=== PATIENT | female | born 1970 | race Caucasian/White ===

== ENCOUNTER 2018-02-04 11:42 | Emergency (ER) | payer SELFPAY ==
[2018-02-04] MEDS ORDERED: ASPIRIN 81 MG TABLET, CHEWABLE PO ONE (12:32)
--- NOTE | 2018-02-04 12:33 | ER Document Report ---
ED Medical Screen (RME) - General Chief Complaint: Chest Pain > 30 Stated Complaint: BLOOD PRESSURE PROBLEM Time Seen by Provider: 02/04/18 12:28 Notes: RAPID MEDICAL EVALUATION DISCLOSURE I have seen this patient as part of a Rapid Medical Evaluation and, if applicable, placed any initially appropriate orders. The patient will be seen and fully evaluated, including a full history and physical exam, by a provider ( in Main ED or Fast Track) when a room becomes available. 47-year-old female PMH hypertension here with complaints of right-sided chest discomfort radiating up to the right neck with associated shortness of breath lightheadedness nausea ongoing since this morning. Symptoms are not worse with exertion but somewhat worse with breathing. She denies any prior history of OR PE DVT. EXAM Minimally diffuse coarse breath sounds RRR TRAVEL OUTSIDE OF THE [place] IN LAST 30 DAYS: No - Related Data Allergies/Adverse Reactions: Penicillins Allergy (Verified 02/04/18 11:43) Sulfa (Sulfonamide Antibiotics) Allergy (Verified 02/04/18 11:43) Physical Exam - Vital signs Vitals: Temp Pulse Resp BP Pulse Ox 98.0 F 71 16 138/73 H 98 02/04/18 11:56 02/04/18 11:56 02/04/18 11:56 02/04/18 11:56 02/04/18 11:56 Course - Vital Signs Vital signs: Temp Pulse Resp BP Pulse Ox 98.0 F 71 16 138/73 H 98 02/04/18 11:56 02/04/18 11:56 02/04/18 11:56 02/04/18 12:32 02/04/18 11:56
--- NOTE | 2018-02-04 12:45 | RADIOLOGY REPORT (SQ) ---
EXAM DESCRIPTION: CHEST 2 VIEWS COMPLETED DATE/TIME: 02/04/2018 12:17 pm REASON FOR STUDY: chest pressure COMPARISON: None. EXAM PARAMETERS: NUMBER OF VIEWS: two views TECHNIQUE: Digital Frontal and Lateral radiographic views of the chest acquired. RADIATION DOSE: NA LIMITATIONS: none FINDINGS: LUNGS AND PLEURA: No opacities, masses or pneumothorax. No pleural effusion. MEDIASTINUM AND HILAR STRUCTURES: No masses or contour abnormalities. HEART AND VASCULAR STRUCTURES: Heart normal size. No evidence for failure. BONES: No acute findings. HARDWARE: None in the chest. OTHER: No other significant finding. IMPRESSION: NO ACUTE RADIOGRAPHIC FINDING IN THE CHEST. TECHNICAL DOCUMENTATION: JOB ID: [id number] [employer]- All Rights Reserved Reading location - IP/workstation name: [email or web address]
[2018-02-04 12:55] LABS: ABSOLUTE EOSINOPHILS # (AUTO) 0.5 10^3/uL (0.0-0.6); ABSOLUTE MONOCYTES (AUTO) 0.7 10^3/uL (0.1-1.4); ABSOLUTE NEUT (AUTO) 6.5 10^3/uL (1.7-8.2); BASOPHILS % (AUTO) 0.2 % (0-2); EOSINOPHILS % (AUTO) 5.1 % (0-6); HEMATOCRIT 44.4 % (36.0-47.0); LYMPHOCYTES % (AUTO) 20.4 % (13-45); MEAN CORPUSCULAR HEMOGLOBIN 29.3 pg (27.0-33.4); MEAN CORPUSCULAR HGB CONC 33.7 g/dL (32.0-36.0); MEAN CORPUSCULAR VOLUME 87 fl (80-97); PLATELET COUNT 311 10^3/uL (150-450); RED BLOOD COUNT 5.11 10^6/uL (3.72-5.28); RED CELL DISTRIBUTION WIDTH 15.4 % (11.5-14.0); SEGMENTED NEUTROPHILS % (AUTO) 67.3 % (42-78); TOTAL CELLS COUNTED % (AUTO) 100 %; WHITE BLOOD COUNT 9.7 10^3/uL (4.0-10.5)
--- NOTE | 2018-02-04 13:05 | ER Document Report ---
ED General - General Chief Complaint: Chest Pain > 30 Stated Complaint: BLOOD PRESSURE PROBLEM Time Seen by Provider: 02/04/18 12:28 TRAVEL OUTSIDE OF THE [place] IN LAST 30 DAYS: No - HPI Notes: Patient is a 47-year-old female with a history of hypertension and report of a previous CVA who presents to the ED complaining of midsternal chest pain that will occasionally radiate to her right arm and up the right lateral side of her neck that began 10 hours ago. Patient states that she has also had a cough over the last day that is semi-productive. Patient states that she does have occasional nausea without vomiting. She is otherwise eating and drinking without difficulties. She is urinating normally and having normal bowel movements. Patient states that she does not take any other medicine aside from lisinopril and is not on any blood thinners. She denies any other significant cardiopulmonary medical history. Patient states that symptoms are not worsened with ambulation. Denies any headache, fever, URI, sore throat, palpitations, syncope, wheeze, dyspnea, abdominal pain, vomiting/diarrhea, urinary retention, dysuria, hematuria, back pain, or rash. - Related Data Allergies/Adverse Reactions: Penicillins Allergy (Verified 02/04/18 11:43) Sulfa (Sulfonamide Antibiotics) Allergy (Verified 02/04/18 11:43) Past Medical History - Social History Smoking Status: Current Every Day Smoker Frequency of alcohol use: None Drug Abuse: None Family History: Reviewed & Not Pertinent Patient has suicidal ideation: No Patient has homicidal ideation: No Renal/ Medical History: Denies: Hx Peritoneal Dialysis Review of Systems - Review of Systems -: Yes All other systems reviewed and negative Physical Exam - Vital signs Vitals: Temp Pulse Resp BP Pulse Ox 98.0 F 71 16 138/73 H 98 02/04/18 11:56 02/04/18 11:56 02/04/18 11:56 02/04/18 11:56 02/04/18 11:56 - Notes Notes: PHYSICAL EXAMINATION: GENERAL: Well-appearing, well-nourished and in no acute distress. HEAD: Atraumatic, normocephalic. EYES: Pupils equal round and reactive to light, extraocular movements intact, sclera anicteric, conjunctiva are normal. ENT: Nares patent and without discharge. oropharynx clear without exudates. No tonsilar hypertrophy or erythema. Moist mucous membranes. NECK: Normal range of motion, supple without lymphadenopathy Chest: + reproducible tenderness to the inferior sternum, correlates with pain described. LUNGS: Breath sounds clear to auscultation bilaterally and equal. No wheezes rales or rhonchi. HEART: Regular rate and rhythm without murmurs, rubs, gallops. ABDOMEN: Soft, nontender, nondistended abdomen. No guarding, no rebound. No masses appreciated. Normal bowel sounds present. No CVA tenderness bilaterally. Musculoskeletal: FROM to passive/active. Strength 5+/5. Kylah neg b/l. Extremities: No cyanosis, clubbing, or edema b/l. Peripheral pulses 2+. Capillary refill less than 3 seconds. NEUROLOGICAL: Cranial nerves grossly intact. Normal speech, normal gait. PSYCH: Normal mood, normal affect. SKIN: Warm, Dry, normal turgor, no rashes or lesions noted. Course - Re-evaluation Re-evalutation: 02/04/18 17:46 Patient is an afebrile, well-hydrated, 47-year-old female who presents to the ED with chest pain unspecified, suspect chest wall pain. Vitals are acceptable. Patient does not have any significant tachycardia, tachypnea, or hypoxia. PE is otherwise unremarkable aside from the reproducible chest wall tenderness on palpation. CBC, CMP, cardiac enzymes 2/EKG, chest x-ray were unremarkable for any acute pathology. Patient has a heart score of 2 and is PERC negative. Wells 0. Patient is nontoxic-appearing and is tolerating p.o. without difficulties. Low suspicion for any ACS, PE, pneumothorax, pericarditis , dissection, respiratory compromise, severe dehydration, sepsis, meningitis, or other systemic emergent condition at this time. Patient is aware that her condition can change from initial presentation and she needs to monitor symptoms closely and seek medical attention for any acute changes. Recommend conservative measures for symptoms. Recheck with your PCM in 3-5 days. Return to the ED with any worsening/concerning symptoms otherwise as reviewed in discharge. Patient is in agreement. - Vital Signs Vital signs: Temp Pulse Resp BP Pulse Ox 97.4 F 71 15 139/82 H 98 02/04/18 14:00 02/04/18 11:56 02/04/18 14:01 02/04/18 14:01 02/04/18 14:01 - Laboratory Result Diagrams: 02/04/18 12:40 02/04/18 12:40 Laboratory results interpreted by me: 02/04/18 12:40 RDW 15.4 H Discharge - Discharge Clinical Impression: Chest wall pain Chest pain Qualifiers: Chest pain type: unspecified Qualified Code(s): R07.9 - Chest pain, unspecified Condition: Stable Disposition: HOME, SELF-CARE Instructions: Chest Wall Pain ([facility]), Chest Pain of Unclear Cause ([facility]) Additional Instructions: My cardiac Maintain adequate fluid and food intake Take home medications as directed Low sodium/fat diet Exercise regularly Weight control Monitor blood pressure daily and keep a log Monitor symptoms for any acute changes Recheck with your PCM in 3-5 days Consider a follow-up with cardiology Return to the ED with any worsening symptoms and/or development of fever, headache, chest pain, palpitations, syncope, shortness of breath, trouble breathing, abdominal pain, n/v/d, blood in stool/urine, loss of control of bowel /bladder, urinary retention, muscle weakness/paralysis, numbness/tingling, or other worsening symptoms that are concerning to you. Forms: Elevated Blood Pressure, Smoking Cessation Education Referrals: TARA SANTORO MD [ACTIVE STAFF] - Follow up as needed
[2018-02-04 13:14] LABS: ANION GAP 8 (5-19); BLOOD UREA NITROGEN 11 mg/dL (7-20); CALCIUM 9.4 mg/dL (8.4-10.2); CARBON DIOXIDE 27 mmol/L (22-30); CHLORIDE 107 mmol/L (98-107); GLUCOSE 101 mg/dL (75-110); POTASSIUM 4.9 mmol/L (3.6-5.0); SODIUM 142.4 mmol/L (137-145)
[2018-02-04 17:57] VITALS: BP 119/78
--- NOTE | 2018-02-05 00:18 | EKG REPORT ---
SEVERITY:- NORMAL ECG - SINUS RHYTHM : Confirmed by: Julissa Camejo MD 05-Feb-2018 00:16:59
== END 2018-02-04 17:58 | disposition home or self-care (01) ==
LOC: ER 11:42
DX: R07.9 Chest pain, unspecified (principal); I10 Essential (primary) hypertension; F17.200 Nicotine dependence, unspecified, uncomplicated; Z86.73 Personal history of transient ischemic attack (TIA), and cerebral infarction without residual deficits; Z88.0 Allergy status to penicillin; Z88.2 Allergy status to sulfonamides
CPT/HCPCS: 36415; 71046; 80048; 84484; 85025; 93005; 93010; 99285

== ENCOUNTER 2019-06-16 20:55 | Emergency (ER) | payer BC ==
[2019-06-16] MEDS ORDERED: ASPIRIN 81 MG TABLET, CHEWABLE PO ONE (22:06)
--- NOTE | 2019-06-16 22:06 | ER Document Report ---
ED Medical Screen (RME) - General Chief Complaint: Chest Pain Stated Complaint: CHEST PAIN/DIZZINESS Time Seen by Provider: 06/16/19 22:02 Mode of Arrival: Wheelchair Information source: Patient Notes: 48-year-old female presented to ED for complaint of chest pain and dizziness. She states that started between 330 4:00 while she was at work. 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 She states she has a history of high blood pressure cholesterol and COPD. She states she smokes a pack and a half of cigarettes a day does not drink or do any drugs. She is alert oriented respirations regular nonlabored at this time. I have greeted and performed a rapid initial assessment of this patient. A comprehensive ED assessment and evaluation of the patient, analysis of test results and completion of medical decision making process will be conducted by an additional ED providers. TRAVEL OUTSIDE OF THE [place] IN LAST 30 DAYS: No - Related Data Allergies/Adverse Reactions: Penicillins Allergy (Verified 06/16/19 21:57) Sulfa (Sulfonamide Antibiotics) Allergy (Verified 06/16/19 21:57) Home Medications: Phenazopyrid. Patient quit taking her lisinopril Past Medical History - Social History Frequency of alcohol use: None Drug Abuse: None Pulmonary Medical History: Reports: Hx Asthma, Hx COPD Renal/ Medical History: Denies: Hx Peritoneal Dialysis Past Surgical History: Reports: Hx Gynecologic Surgery, Hx Orthopedic Surgery Physical Exam - Vital signs Vitals: Temp Pulse Resp BP Pulse Ox 99.0 F 87 18 181/101 H 97 06/16/19 21:15 06/16/19 21:15 06/16/19 21:15 06/16/19 21:15 06/16/19 21:15 Course - Vital Signs Vital signs: Temp Pulse Resp BP Pulse Ox 99.0 F 87 18 181/101 H 97 06/16/19 21:15 06/16/19 21:15 06/16/19 21:15 06/16/19 21:15 06/16/19 21:15
[2019-06-16 22:42] LABS: ABSOLUTE BASOPHILS # (AUTO) 0.1 10^3/uL (0.0-0.2); ABSOLUTE EOSINOPHILS # (AUTO) 0.2 10^3/uL (0.0-0.6); ABSOLUTE LYMPHOCYTES (AUTO) 2.6 10^3/uL (0.5-4.7); ABSOLUTE MONOCYTES (AUTO) 0.7 10^3/uL (0.1-1.4); HEMATOCRIT 45.4 % (36.0-47.0); HEMOGLOBIN 15.1 g/dL (12.0-15.5); LYMPHOCYTES % (AUTO) 22.5 % (13-45); MEAN CORPUSCULAR HEMOGLOBIN 28.9 pg (27.0-33.4); MEAN CORPUSCULAR HGB CONC 33.2 g/dL (32.0-36.0); MEAN CORPUSCULAR VOLUME 87 fl (80-97); PLATELET COUNT 297 10^3/uL (150-450); RED BLOOD COUNT 5.22 10^6/uL (3.72-5.28); RED CELL DISTRIBUTION WIDTH 15.2 % (11.5-14.0); SEGMENTED NEUTROPHILS % (AUTO) 68.5 % (42-78); TOTAL CELLS COUNTED % (AUTO) 100 %; WHITE BLOOD COUNT 11.6 10^3/uL (4.0-10.5)
[2019-06-16 22:56] LABS: APPEARANCE,URINE CLEAR; BILIRUBIN,URINE NEGATIVE (NEGATIVE); GLUCOSE, URINE NEGATIVE (NEGATIVE); KETONES,URINE NEGATIVE (NEGATIVE); PROTEIN,URINE NEGATIVE (NEGATIVE); URINE SPECIFIC GRAVITY 1.006; UROBILINOGEN,URINE NEGATIVE mg/dL (<2.0)
[2019-06-16 22:59] LABS: ALBUMIN 4.9 g/dL (3.5-5.0); ALKALINE PHOSPHATASE 57 U/L (38-126); ANION GAP 8 (5-19); ASPARTATE AMINO TRANSFERASE 20 U/L (14-36); BILIRUBIN,DIRECT 0.1 mg/dL (0.0-0.4); BILIRUBIN,TOTAL 0.5 mg/dL (0.2-1.3); BLOOD UREA NITROGEN 11 mg/dL (7-20); CALCIUM 10.4 mg/dL (8.4-10.2); CARBON DIOXIDE 29 mmol/L (22-30); CHLORIDE 103 mmol/L (98-107); GLUCOSE 91 mg/dL (75-110); POTASSIUM 4.6 mmol/L (3.6-5.0); TOTAL PROTEIN 7.8 g/dL (6.3-8.2)
--- NOTE | 2019-06-16 23:03 | RADIOLOGY REPORT (SQ) ---
EXAM DESCRIPTION: XR CHEST 2 VIEWS COMPLETED DATE/TME: 06/16/2019 22:07 CLINICAL HISTORY: 48 years, Female, chest pain copd COMPARISON: Prior study from 02/04/2018 NUMBER OF VIEWS: Two TECHNIQUE: Frontal and lateral radiographs of the chest were acquired LIMITATIONS: None. FINDINGS: Cardiac and mediastinal contours are stable. Lungs are clear. No pleural effusion or pneumothorax. Nodular opacities project about both lower lung zones, indicating nipple shadows. IMPRESSION: No acute disease. copyright 2010 [employer]- All Rights Reserved
[2019-06-16 23:08] LABS: COLOR,URINE DARK YELLOW
--- NOTE | 2019-06-17 00:16 | ER Document Report ---
ED Cardiac - General Chief Complaint: Chest Pain Stated Complaint: CHEST PAIN/DIZZINESS Time Seen by Provider: 06/16/19 22:02 Mode of Arrival: Wheelchair Notes: 48-year-old female with past significant history of hypertension presents with right sided chest pain with radiation down right arm, dyspnea, and dizziness th at started while at work at around [id number]. Pt states she has similar episodes in past several weeks but states it has been more constant today. Pt is also a smoker and has COPD. Pt has history of stress test years ago which was negative. 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 Pt's mother has history of 3-4 stents. Denies any dysuria or frequency/urgency. Pt has also been referred to urology due to hematuria. TRAVEL OUTSIDE OF THE [place] IN LAST 30 DAYS: No - Related Data Allergies/Adverse Reactions: Penicillins Allergy (Verified 06/16/19 21:57) Sulfa (Sulfonamide Antibiotics) Allergy (Verified 06/16/19 21:57) Home Medications: Phenazopyrid. Patient quit taking her lisinopril Past Medical History - General Information source: Patient - Social History Smoking Status: Current Every Day Smoker Frequency of alcohol use: None Drug Abuse: None Family History: CAD, CVA Patient has suicidal ideation: No Patient has homicidal ideation: No - Past Medical History Cardiac Medical History: Reports: Hx Hypertension Pulmonary Medical History: Reports: Hx Asthma, Hx COPD Renal/ Medical History: Denies: Hx Peritoneal Dialysis Past Surgical History: Reports: Hx Gynecologic Surgery, Hx Orthopedic Surgery Review of Systems - Review of Systems Notes: Constitutional: Negative for fever. HENT: Negative for sore throat. Eyes: Negative for visual changes. Cardiovascular: Positive for chest pain. Respiratory: Positive for shortness of breath. Gastrointestinal: Negative for abdominal pain, vomiting or diarrhea. Genitourinary: Negative for dysuria. Musculoskeletal: Negative for back pain. Skin: Negative for rash. Neurological: Positive for dizziness. Negative for headaches, weakness or numbness. 10 point ROS negative except as marked above and in HPI. Physical Exam - Vital signs Vitals: Temp Pulse Resp BP Pulse Ox 99.0 F 87 18 181/101 H 97 06/16/19 21:15 06/16/19 21:15 06/16/19 21:15 06/16/19 21:15 06/16/19 21:15 - Notes Notes: GENERAL: Well-appearing, well-nourished and in no acute distress. HEAD: Atraumatic, normocephalic. EYES: Extraocular movements intact, sclera anicteric, conjunctiva are normal. NECK: Normal range of motion, supple without lymphadenopathy or JVD. LUNGS: Breath sounds clear to auscultation bilaterally and equal. No wheezes rales or rhonchi. HEART: Regular rate and rhythm without murmurs, rubs or gallops. ABDOMEN: Soft, nontender, normoactive bowel sounds. No guarding, no rebound. No masses appreciated. EXTREMITIES: Normal range of motion, no pitting or edema. No clubbing or cyanosis. NEUROLOGICAL: Cranial nerves II through XII grossly intact. Normal speech, normal gait. PSYCH: Normal mood, normal affect. SKIN: Warm, Dry, normal turgor, no rashes or lesions noted. Course - Re-evaluation Re-evalutation: 06/17/19 Presentation of chest pain in an otherwise well appearing patient. Low clinical suspicion for ACS given clinical history, exam, EKG without ST elevations or depressions, and negative initial troponin. HEART score less than or equal to 3. PE also seems unlikely given clinical history, absence of tachycardia or dyspnea. Patient is PERC criteria negative. CXR without evidence of pneumothorax or pneumonia. No widened mediastinum. Aortic dissection also seems unlikely given history, symmetric pulses, CXR, and vitals. HEART Score: History ECG Age Risk Factors Troponin Total:3 Chest pain in a patient without evidence of cardiac or other serious etiology on workup today. I discussed with patient that, based on their age, risk factors and emergency department testing today, the likelihood that their symptoms are related to a heart attack is very low (estimated risk of heart attack or over the next 30 days of less than 1%). The patient demonstrates decision making capacity and has verbalized an understanding of these risks to me. Based on this, the patient has chosen to follow-up as an outpatient. Usual chest pain return precautions reviewed. The patient states understanding and agreement with this plan. - Vital Signs Vital signs: Temp Pulse Resp BP Pulse Ox 97.7 F 87 22 H 151/81 H 94 06/17/19 01:47 06/16/19 21:15 06/17/19 01:01 06/17/19 01:01 06/17/19 01:01 - Laboratory Result Diagrams: 06/16/19 22:22 06/16/19 22:22 Laboratory results interpreted by me: 06/16/19 06/16/19 06/16/19 22:22 22:22 22:22 WBC 11.6 H RDW 15.2 H Calcium 10.4 H Urine Blood SMALL H Urine Nitrite (Reflex) POSITIVE H Discharge - Discharge Clinical Impression: Chest pain Qualifiers: Chest pain type: unspecified Qualified Code(s): R07.9 - Chest pain, unspecified Condition: Stable Disposition: HOME, SELF-CARE Instructions: Chest Pain of Unclear Cause ([facility]) Additional Instructions: You were seen today for chest pain. The exact cause of your pain is unclear. However, based on your cardiac enzyme testing, chest x-ray, and EKG it does not appear that it is from an immediately life-threatening cause at this time. Please keep your commercial front load operator appointment as scheduled. Please return to emergency department immediately if you have worsening of your chest pain, shortness of breath, vomiting, become unable to exert yourself due to pain or difficulty breathing, you pass out, or have any pain that radiates into your arms, jaw, or back. Please also return if you have any additional symptoms that are concerning to you. Forms: Return to Work
[2019-06-17 02:29] VITALS: BP 147/76
--- NOTE | 2019-06-17 21:34 | EKG REPORT ---
SEVERITY:- ABNORMAL ECG - SINUS RHYTHM PROBABLE LEFT ATRIAL ABNORMALITY PROBABLE LEFT VENTRICULAR HYPERTROPHY : Confirmed by: Carlene Wallis 17-Jun-2019 21:33:58
== END 2019-06-17 02:30 | disposition home or self-care (01) ==
LOC: ER 20:55
DX: R07.9 Chest pain, unspecified (principal); R42 Dizziness and giddiness; M79.601 Pain in right arm; R06.00 Dyspnea, unspecified; F17.200 Nicotine dependence, unspecified, uncomplicated; I10 Essential (primary) hypertension; J44.9 Chronic obstructive pulmonary disease, unspecified; Z91.14 Patient's other noncompliance with medication regimen; Z79.899 Other long term (current) drug therapy
CPT/HCPCS: 36415; 71046; 80053; 81001; 83690; 84484; 84703; 85025; 87086; 93005; 93010; 99285

== ENCOUNTER 2019-07-10 20:10 | Emergency (ER) | payer BC ==
[2019-07-10] MEDS ORDERED: ONDANSETRON HCL INJ/PF 4 MG/2 ML SDV IV ONE (20:20)
[2019-07-10] MEDS ORDERED: NORMAL SALINE 1000 ML 1,000 ML IV ONE (20:20)
[2019-07-10] MEDS ORDERED: FAMOTIDINE INJ/PF 20 MG/2 ML SDV IV ONE (20:21)
--- NOTE | 2019-07-10 20:24 | ER Document Report ---
ED Medical Screen (RME) - General Stated Complaint: UPPER GASTRIC PAIN Time Seen by Provider: 07/10/19 20:16 Notes: Patient is a 48-year-old female who presents the emergency department with a chief complaint of abdominal pain. Patient reports she was diagnosed with a uterine fibroid last week. Patient reports she started to have some lower abdominal discomfort 2 days ago but that it started to radiate up into her upper abdomen. Patient reports epigastric pain that is worse when attempting to eat. Patient reports she feels extreme nausea and every time she attempts to vomit she feels like it stuck in her throat and does not come up. Patient reports dry heaving. Patient denies fever. Patient reports generalized abdominal pain at this time. Patient denies urinary symptoms. TRAVEL OUTSIDE OF THE [place] IN LAST 30 DAYS: No - Related Data Allergies/Adverse Reactions: Penicillins Allergy (Verified 06/16/19 21:57) Sulfa (Sulfonamide Antibiotics) Allergy (Verified 06/16/19 21:57) Past Medical History - Past Medical History Cardiac Medical History: Reports: Hx Hypertension Pulmonary Medical History: Reports: Hx Asthma, Hx COPD Renal/ Medical History: Denies: Hx Peritoneal Dialysis Past Surgical History: Reports: Hx Gynecologic Surgery, Hx Orthopedic Surgery Physical Exam - Abdominal Inspection: Normal Distension: No distension Tenderness: Tender - Generalized abdominal tenderness throughout. Course - Re-evaluation Re-evalutation: 07/10/19 20:24 Patient currently dry heaving in triage. Patient does have generalized abdominal tenderness on examination. Patient will require a thorough abdominal exam. Will start IV fluids, lab work and antinausea medication here in triage. I have greeted and performed a rapid initial assessment of this patient. A comprehensive ED assessment and evaluation of the patient, analysis of test results and completion of the medical decision making process will be conducted by additional ED providers.
[2019-07-10 20:59] LABS: ABSOLUTE BASOPHILS # (AUTO) 0.1 10^3/uL (0.0-0.2); ABSOLUTE EOSINOPHILS # (AUTO) 0.4 10^3/uL (0.0-0.6); ABSOLUTE LYMPHOCYTES (AUTO) 2.5 10^3/uL (0.5-4.7); ABSOLUTE NEUT (AUTO) 8.1 10^3/uL (1.7-8.2); BASOPHILS % (AUTO) 0.6 % (0-2); EOSINOPHILS % (AUTO) 2.9 % (0-6); HEMATOCRIT 45.6 % (36.0-47.0); HEMOGLOBIN 15.5 g/dL (12.0-15.5); LYMPHOCYTES % (AUTO) 20.7 % (13-45); MEAN CORPUSCULAR HEMOGLOBIN 29.6 pg (27.0-33.4); MEAN CORPUSCULAR HGB CONC 34.1 g/dL (32.0-36.0); MEAN CORPUSCULAR VOLUME 87 fl (80-97); MONOCYTES % (AUTO) 8.4 % (3-13); PLATELET COUNT 333 10^3/uL (150-450); RED BLOOD COUNT 5.24 10^6/uL (3.72-5.28); RED CELL DISTRIBUTION WIDTH 15.4 % (11.5-14.0); SEGMENTED NEUTROPHILS % (AUTO) 67.4 % (42-78); TOTAL CELLS COUNTED % (AUTO) 100 %
[2019-07-10 21:10] LABS: ALKALINE PHOSPHATASE 67 U/L (38-126); ANION GAP 11 (5-19); ASPARTATE AMINO TRANSFERASE 21 U/L (14-36); BILIRUBIN,DIRECT 0.2 mg/dL (0.0-0.4); BILIRUBIN,TOTAL 0.7 mg/dL (0.2-1.3); BLOOD UREA NITROGEN 18 mg/dL (7-20); CALCIUM 10.5 mg/dL (8.4-10.2); CARBON DIOXIDE 27 mmol/L (22-30); CHLORIDE 100 mmol/L (98-107); GLUCOSE 103 mg/dL (75-110); POTASSIUM 4.6 mmol/L (3.6-5.0); TOTAL PROTEIN 8.1 g/dL (6.3-8.2)
[2019-07-10 21:14] LABS: APPEARANCE,URINE SLIGHTLY-CLOUDY; BILIRUBIN,URINE NEGATIVE (NEGATIVE); COLOR,URINE YELLOW; GLUCOSE, URINE NEGATIVE (NEGATIVE); KETONES,URINE NEGATIVE (NEGATIVE); LEUKOCYTE ESTERASE,URINE NEGATIVE (NEGATIVE); NITRITE,URINE NEGATIVE (NEGATIVE); PROTEIN,URINE NEGATIVE (NEGATIVE); URINE SPECIFIC GRAVITY 1.017; UROBILINOGEN,URINE NEGATIVE mg/dL (<2.0)
--- NOTE | 2019-07-10 23:07 | ER Document Report ---
ED General - General Chief Complaint: Abdominal Pain Stated Complaint: UPPER GASTRIC PAIN Time Seen by Provider: 07/10/19 20:16 Primary Care Provider: JOSE ALFREDO LIMA NP [Primary Care Provider] - Follow up as needed TRAVEL OUTSIDE OF THE [place] IN LAST 30 DAYS: No - Related Data Allergies/Adverse Reactions: Penicillins Allergy (Verified 06/16/19 21:57) Sulfa (Sulfonamide Antibiotics) Allergy (Verified 06/16/19 21:57) Past Medical History - Social History Smoking Status: Former Smoker Family History: CAD, CVA Patient has suicidal ideation: No Patient has homicidal ideation: No - Past Medical History Cardiac Medical History: Reports: Hx Hypertension Pulmonary Medical History: Reports: Hx Asthma, Hx COPD Renal/ Medical History: Denies: Hx Peritoneal Dialysis Past Surgical History: Reports: Hx Gynecologic Surgery, Hx Orthopedic Surgery Physical Exam - Vital signs Vitals: Temp Pulse Resp BP Pulse Ox 98.7 F 110 H 20 146/99 H 98 07/10/19 20:22 07/10/19 20:22 07/10/19 20:22 07/10/19 20:22 07/10/19 20:22 - Notes Notes: Patient presents emergency department complaining of pain across her upper abdomen around to her back and off the past week. Pain is been constant increasing decreasing in severity. Pain is totally different from the lower abdominal pain she has had for 2 months and was recently diagnosed with a fibroid uterus. She said nausea vomiting with is unable to tolerate any p.o.'s. No fevers chest pain or shortness of breath she says indicates she is felt wa rm. Has had no diarrhea or dysuria denies any previous history of peptic ulcer disease or gallbladder disease Past medical history sniffing for hypertension and fibroid uterus. Social history smokes does not drink. LMP just ended Review of systems pertinent positives and negatives in HPI otherwise all the systems were reviewed and acutely negative PHYSICIAN EXAM -vital signs are noted triage note and note from triage reviewed GENERAL: Well-appearing, well-nourished and in __no acute distress____ HEAD: Atraumatic, normocephalic. EYES: Pupils equal round and reactive to light, extraocular movements intact, sclera anicteric, conjunctiva are normal. ENT: nares patent, oropharynx clear without exudates. Slightly dry mucous membranes. NECK: supple without lymphadenopathy LUNGS: Breath sounds clear to auscultation bilaterally and equal. No wheezes rales or rhonchi. HEART: Rapid and regular ABDOMEN: Severe tenderness throughout however the pain appears to be out of pr oportion to her findings. Percussion tenderness is no rigidity. However she has no pain with abduction of the hips or percussion of the heels EXTREMITIES: No deformity, no edema. NEUROLOGICAL: Cranial nerves symmetrical smile and facial expressions. Motor strength is 5/5 in the upper and l lower extremities toes are downgoing no pain with straight leg raise PSYCH: Normal mood, normal affect. SKIN: Warm, Dry, normal turgor, no rashes or lesions noted. BACK-she has severe bilateral CVA tenderness again appears out of proportion to the findings that extends into the lower costal margin vertebral area but there is no pain with sitting Differential diagnosis dehydration viral syndrome pancreatitis peptic ulcer near pyelonephritis pneumonia Course - Re-evaluation Re-evalutation: 07/11/19 02:20 ED patient remained stable had serial exams abdominal pain is improved significantly. Given IV fluids and tolerating liquids well Medical decision making patient presents with abdominal pain of unclear etiology. She is not dehydrated work-up is unremarkable notes of a surgical abdomen looks well can be discharged home I discussed results of laboratory findings and diagnostic test with patient/family. The treatment plan was explained and I reviewed the discharge instructions with them. Questions were answered. The patient/family verbalizes understanding Patient 1 dictation was done using voice recognition software. There may be some grammatical errors which are unintentional - Vital Signs Vital signs: Temp Pulse Resp BP Pulse Ox 98.2 F 86 16 123/57 L 100 07/11/19 00:22 07/11/19 00:22 07/11/19 00:22 07/11/19 00:22 07/11/19 00:22 - Laboratory Result Diagrams: 07/10/19 20:28 07/10/19 20:28 Laboratory results interpreted by me: 07/10/19 07/10/19 07/10/19 20:28 20:28 21:00 WBC 12.0 H RDW 15.4 H Calcium 10.5 H Urine Blood MODERATE H Discharge - Discharge Clinical Impression: Vomiting Abdominal pain Qualifiers: Abdominal location: upper abdomen, unspecified Qualified Code(s): R10.10 - Upper abdominal pain, unspecified Disposition: HOME, SELF-CARE Instructions: Abdominal Pain ([facility]), Antinausea Medication ([facility]), Antispasmodics ([facility]) Additional Instructions: Please review the discharge instructions, they will tell you about your disease/injury and what you need to return to the ED for Return to the ED if you feel worse or can follow-up with your family doctor Follow-up with your family doctor in 2 to 3 days if not better STAY on clear liquids for the next 8 to 12 hours and then a bland diet for the next 2 to 3 days avoiding fatty greasy foods Your blood pressure was elevated today needs to be rechecked again in 1 to 2 weeks to determine if need to be on medication or have your medications a djusted. Untreated hypertension can cause heart attack stroke and kidney failure Prescriptions: Dicyclomine HCl [Bentyl 20 mg Tablet] 20 mg PO QID PRN #15 tablet PRN Reason: Ondansetron HCl [Zofran 4 mg Tablet] 1 tab PO Q4H PRN #10 tablet PRN Reason: Referrals: JOSE ALFREDO LIMA NP [Primary Care Provider] - Follow up as needed
--- NOTE | 2019-07-11 00:04 | RADIOLOGY REPORT (SQ) ---
EXAM DESCRIPTION: XR CHEST 2 VIEWS COMPLETED DATE/TME: 07/10/2019 23:08 CLINICAL HISTORY: 48 years Female, Chest pain COMPARISON:Jun 16 2019 NUMBER OF VIEWS/TECHNIQUE: 2, Frontal, Lateral FINDINGS: Increased emphysematous lung volume, clear parenchyma, normal cardiac silhouette, and intact bony thorax. IMPRESSION: No acute cardiopulmonary findings.
--- NOTE | 2019-07-11 00:23 | RADIOLOGY REPORT (SQ) ---
EXAM DESCRIPTION: CT abdomen and pelvis with contrast CLINICAL HISTORY: 48 years Female, Abdominal pain COMPARISON: None. TECHNIQUE: Axial images of the abdomen and pelvis were performed utilizing intravenous contrast, with sagittal and coronal reformatted images. This exam was performed according to our departmental dose-optimization program which includes use of Automated Exposure Control, adjustment of the mA and/or kV according to patient size and/or use of iterative reconstruction technique. FINDINGS: There is a small amount of fluid in the endometrial cavity. There are atherosclerotic changes involving the abdominal aorta, but there is no aneurysm. The appendix appears normal. No evidence of bowel obstruction. There is no significant radiographic abnormality of the liver, spleen, pancreas, adrenal glands or kidneys. There is a small calcified granuloma at the right lung base. IMPRESSION: Small amount of fluid in the endometrial cavity. Please correlate clinically. There are atherosclerotic changes involving the abdominal aorta, but there is no aneurysm.
[2019-07-11] MEDS ORDERED: ONDANSETRON ODT 4 MG TAB (6 TAB/ER DISP) PO PRN (02:30)
[2019-07-11 02:45] VITALS: BP 125/44
== END 2019-07-11 02:45 | disposition home or self-care (01) ==
LOC: ER 20:10
DX: R11.10 Vomiting, unspecified (principal); R10.10 Upper abdominal pain, unspecified; I10 Essential (primary) hypertension; J44.9 Chronic obstructive pulmonary disease, unspecified; F17.200 Nicotine dependence, unspecified, uncomplicated
CPT/HCPCS: 99284; 96361; 96374; 96375; 36415; 83690; 85025; 81025; 80053; 81001; 71046; 74177; J2405; J7030; S0028

== ENCOUNTER 2020-03-24 08:00 | Emergency (ER) | payer BC ==
[2020-03-24 08:52] VITALS: BP 152/79
[2020-03-24] MEDS ORDERED: MECLIZINE HCL 25 MG TABLET PO ONE (09:46)
[2020-03-24 10:31] LABS: ABSOLUTE BASOPHILS # (AUTO) 0.3 10^3/uL (0.0-0.2); ABSOLUTE EOSINOPHILS # (AUTO) 0.4 10^3/uL (0.0-0.6); ABSOLUTE LYMPHOCYTES (AUTO) 2.6 10^3/uL (0.5-4.7); ABSOLUTE MONOCYTES (AUTO) 0.7 10^3/uL (0.1-1.4); BASOPHILS % (AUTO) 2.3 % (0-2); EOSINOPHILS % (AUTO) 3.2 % (0-6); HEMOGLOBIN 16.1 g/dL (12.0-15.5); LYMPHOCYTES % (AUTO) 23.9 % (13-45); MEAN CORPUSCULAR HEMOGLOBIN 29.8 pg (27.0-33.4); MEAN CORPUSCULAR HGB CONC 33.5 g/dL (32.0-36.0); MEAN CORPUSCULAR VOLUME 89 fl (80-97); MONOCYTES % (AUTO) 6.5 % (3-13); PLATELET COUNT 331 10^3/uL (150-450); RED CELL DISTRIBUTION WIDTH 15.1 % (11.5-14.0); SEGMENTED NEUTROPHILS % (AUTO) 64.1 % (42-78); TOTAL CELLS COUNTED % (AUTO) 100 %
[2020-03-24 10:48] LABS: APPEARANCE,URINE CLEAR; BILIRUBIN,URINE NEGATIVE (NEGATIVE); COLOR,URINE YELLOW; GLUCOSE, URINE NEGATIVE (NEGATIVE); KETONES,URINE NEGATIVE (NEGATIVE); PROTEIN,URINE NEGATIVE (NEGATIVE); URINE SPECIFIC GRAVITY 1.016; UROBILINOGEN,URINE NEGATIVE mg/dL (<2.0)
[2020-03-24 10:49] LABS: ALBUMIN 4.8 g/dL (3.5-5.0); ALKALINE PHOSPHATASE 56 U/L (38-126); ANION GAP 5 (5-19); ASPARTATE AMINO TRANSFERASE 26 U/L (14-36); BILIRUBIN,TOTAL 0.6 mg/dL (0.2-1.3); BLOOD UREA NITROGEN 16 mg/dL (7-20); CALCIUM 9.6 mg/dL (8.4-10.2); CARBON DIOXIDE 27 mmol/L (22-30); CHLORIDE 104 mmol/L (98-107); GLUCOSE 95 mg/dL (75-110); POTASSIUM 5.2 mmol/L (3.6-5.0); TOTAL PROTEIN 8.4 g/dL (6.3-8.2)
--- NOTE | 2020-03-24 10:54 | ER Document Report ---
ED General - General Chief Complaint: Dizziness Stated Complaint: WEAKNESS,DIARRHEA Time Seen by Provider: 03/24/20 09:16 Primary Care Provider: JOSE ALFREDO LIMA NP [Primary Care Provider] - Follow up as needed Mode of Arrival: Ambulatory Information source: Patient Notes: 49-year-old female patient presenting to the emergency department complaints of dizziness, nausea after starting Lexapro 2 days ago. She states she is only had 2 doses. She states that her mental health provider started her on this. She was not taking any antidepressant previous to this. She denies any suicidal homicidal thoughts. She states that she believes her dizziness is from the med ication and she wanted to get checked out before stopping the medication. She denies any fever, chills, vomiting or diarrhea. She denies any known exposure 20 COVID-19 positive persons. TRAVEL OUTSIDE OF THE [place] IN LAST 30 DAYS: No - Related Data Allergies/Adverse Reactions: Penicillins Allergy (Verified 03/24/20 10:57) Sulfa (Sulfonamide Antibiotics) Allergy (Verified 03/24/20 10:57) Past Medical History - General Information source: Patient - Social History Smoking Status: Current Every Day Smoker Frequency of alcohol use: None Drug Abuse: None Family History: CAD, CVA Patient has homicidal ideation: No - Past Medical History Cardiac Medical History: Reports: Hx Hypertension Pulmonary Medical History: Reports: Hx Asthma, Hx COPD Renal/ Medical History: Denies: Hx Peritoneal Dialysis Past Surgical History: Reports: Hx Gynecologic Surgery, Hx Orthopedic Surgery Review of Systems - Review of Systems Constitutional: Other - Dizziness Gastrointestinal: Nausea -: Yes All other systems reviewed and negative Physical Exam - Vital signs Vitals: Temp Pulse Resp BP Pulse Ox 98.7 F 52 L 16 152/79 H 99 03/24/20 08:51 03/24/20 08:51 03/24/20 08:51 03/24/20 08:51 03/24/20 08:51 - Notes Notes: PHYSICAL EXAMINATION: GENERAL: Well-appearing, well-nourished and in no acute distress. HEAD: Atraumatic, normocephalic. EYES: Pupils equal round and reactive to light, extraocular movements intact, conjunctiva are normal. ENT: Nares patent, oropharynx clear without exudates. Moist mucous membranes. NECK: Normal range of motion, supple without lymphadenopathy LUNGS: Breath sounds clear to auscultation bilaterally and equal. No wheezes rales or rhonchi. HEART: Regular rate and rhythm without murmurs ABDOMEN: Soft, nontender, nondistended abdomen. No guarding, no rebound. No masses appreciated. Female : deferred Musculoskeletal: Normal range of motion, no pitting or edema. No cyanosis. NEUROLOGICAL: Cranial nerves grossly intact. Normal speech, normal gait. Normal sensory, motor exams PSYCH: Normal mood, normal affect. SKIN: Warm, Dry, normal turgor, no rashes or lesions noted. Course - Re-evaluation Re-evalutation: Patient appears well, nontoxic. Her work-up today has been reassuring. She has only taken 2 doses of the Lexapro, she was not on an antidepressant prior to this. I will advise her to not to take any additional Lexapro and to call her primary care provider/mental health provider tomorrow for advice on how to proceed further with medication management. Patient is agreeable to this plan. - Vital Signs Vital signs: Temp Pulse Resp BP Pulse Ox 98.7 F 52 L 16 152/79 H 99 03/24/20 09:10 03/24/20 09:10 03/24/20 09:10 03/24/20 09:10 03/24/20 09:10 - Laboratory Result Diagrams: 03/24/20 10:05 03/24/20 10:05 Laboratory results interpreted by me: 03/24/20 03/24/20 03/24/20 10:05 10:05 10:05 WBC 11.0 H RBC 5.40 H Hgb 16.1 H Hct 48.0 H RDW 15.1 H Baso % (Auto) 2.3 H Absolute Basos (auto) 0.3 H Sodium 135.7 L Potassium 5.2 H Total Protein 8.4 H Urine Blood SMALL H - EKG Interpretation by Ne EKG shows normal: Sinus rhythm - EKG shows a sinus bradycardia, rate of 50, and normal axis, normal intervals, no ST segment elevations or depressions. Discharge - Discharge Clinical Impression: Medication side effects, Dizziness Diarrhea Qualifiers: Diarrhea type: unspecified type Qualified Code(s): R19.7 - Diarrhea, unspecified Condition: Stable Disposition: HOME, SELF-CARE Additional Instructions: I believe your symptoms are related to the new medication that you have started. Since you have only taken this medicine for 2 days my advice would be to stop taking it and call your prescriber tomorrow to discuss the fact that you had persistent diarrhea and dizziness after starting this medication and see if they want to start you on something different. Please use the meclizine as needed as this may help with your dizziness. Return to the emergency department any new or worsening symptoms. Prescriptions: Meclizine HCl [Antivert 25 mg Tablet] 25 mg PO TID PRN #21 tablet PRN Reason: Referrals: JOSE ALFREDO LIMA, DOG GROOMER [Primary Care Provider] - Follow up as needed
--- NOTE | 2020-03-24 20:11 | EKG REPORT ---
SEVERITY:- BORDERLINE ECG - SINUS BRADYCARDIA PROBABLE LEFT ATRIAL ABNORMALITY : Confirmed by: Ronnie Gonsalves MD 24-Mar-2020 20:10:46
== END 2020-03-24 12:09 | disposition home or self-care (01) ==
LOC: ER 08:00
DX: R42 Dizziness and giddiness (principal); R11.0 Nausea; T43.225A Adverse effect of selective serotonin reuptake inhibitors, initial encounter; R19.7 Diarrhea, unspecified; R00.1 Bradycardia, unspecified; F17.200 Nicotine dependence, unspecified, uncomplicated; I10 Essential (primary) hypertension; J44.9 Chronic obstructive pulmonary disease, unspecified; Z88.0 Allergy status to penicillin; Z88.2 Allergy status to sulfonamides
CPT/HCPCS: 36415; 80053; 81001; 85025; 93005; 93010; 99284